=== PATIENT | male | born 1955 | race Caucasian/White ===

== ENCOUNTER 2019-02-16 06:42 | Inpatient (IN) | payer MEDICARE, OTHER ==
[~2019-02-16] VITALS: Ht 172.7 cm; Wt 137.7 kg
[~2019-02-16 06:42] MED LIST: ASPI81EC PO; ATOR80 PO; FISH1000 PO; GLIP10ER PO; METF500C PO; MULTIVITAMIN PO; OMEP20ER PO; PIOG30 PO
[2019-02-16] MEDS ORDERED: ROSU10TA PO (11:56)
[2019-02-16] MEDS ORDERED: Lisinopril2.5 MG PO (11:59)
[2019-02-16] MEDS ORDERED: METO25ER PO (12:00)
[2019-02-16] MEDS ORDERED: Nitro-Dur1 EACH TD (12:01)
--- NOTE | 2019-02-16 12:04 | NUR ---
History, Chart, Medications and Allergies reviewed before start of procedure. Patient confirms NPO status and agrees with scheduled surgery.
--- NOTE | 2019-02-16 13:00 | NUR ---
PT TAKEN TO ROOM 220 TO AWAIT FOR SURGERY. ORIENTED TO CALL LIGHT, PT AMBULATED WITH FWW STEADY, USED BATHROOM. CALL LIGHT IN REACH AND TESTER OPERATOR HELPER AND PLATE CLEANER AWARE PT IS WAITING IN ROOM.
--- NOTE | 2019-02-16 18:20 | NUR ---
PATIENT TO ROOM 220 FROM PACU. AWAKE. STATES PAIN 5/1O. DENIES NAUSEA. LLE IN SPLINT AND ZACH WRAP, ELEVATED. TOES PINK AND WARM, WIGGLES THEM. LS CLEAR. HRR. VSS. PATIENT ASKING FOR FOOD, TALKATIVE. WILL MONITOR AND REPORT TO NOC RN.
--- NOTE | 2019-02-17 07:54 | NUR ---
SHIFT SUMMARY PT A&O X4 T/O SHIFT. POD#1 ORIF OR LLE; DRESSING CDI; LLE ELEVATED WITH ICE T/O SHIFT. TOES PWD BILAT; BRISK CAP REFILL. PAIN MANAGED PER EMAR. SCD AND MELINDA TO RLE. WEANED DOWN TO RA WHILE AWAKE, PT DECLINED CPAP WHILE SLEEPING AND OPTED FOR O2 WHILE SLEEPING. CONT. OX IN PLACE. CALL LIGHT IN REACH; PT DEMONSTRATES USE. REPORT GIVEN TO DAY SHIFT RN.
--- NOTE | 2019-02-17 09:26 | NUR ---
DR BONILLA HERE TO SEE PT.
--- NOTE | 2019-02-17 17:16 | NUR ---
PT REPORTS DOES NOT WANT TO HAVE NITRO PATCH PLACED TODAY.
--- NOTE | 2019-02-17 17:39 | NUR ---
SHIFT SUMMARY PT EATING AND DRINKING. PT WORKED WITH THERAPY TODAY. PT BEEN ASSISTED WITH ADL'S PRN. PT BEEN MED FOR PAIN PER PT REQ. PT USING CALL LIGHT APPR. FRIENDS IN TO SEE PT THIS EVENING. PT DID TAKE NAP THIS AFTERNOON IN BED. PT VOIDING, DISCUSSED BOWEL CARE.
--- NOTE | 2019-02-18 05:56 | NUR ---
POD 2 S/P ORIF OF LLE. PT VSS T/O NIGHT. DRESSING CDI. CAP REFILL WNL, PT DENIED N/T. LLE ELEVATED IN BED T/O NIGHT, W/ICE PRN. PAIN MGD PER EMAR W/REP RELIEF. PT ANXIOUS R/T MOBILITY AND MAINTAINING WBS; EDUCATION AND ENCOURAGEMENT PROVIDED. PT USING CALL LIGHT FOR ASSISTANCE, WILL CONT TO MONITOR UNTIL REP GIVEN TO ONCOMING RN.
--- NOTE | 2019-02-18 12:44 | NUR ---
PT REPORTS NAUSEA MEDICATION HELPED.
--- NOTE | 2019-02-18 18:09 | NUR ---
SHIFT SUMMARY PT EATING AND DRINKING WELL. VOIDING. PT HAD BM TODAY. PT WORKED WITH THERAPY. BEEN UP TO W/C THIS AFTERNOON. PT BEEN ASSISTED WITH ADL'S PRN. PT BEEN MED FOR PAIN PRN. PT USING [employer] APPR.
--- NOTE | 2019-02-19 05:42 | NUR ---
SHIFT SUMMARY PT A&O X4 T/O SHIFT. POD#3 ORIF LLE; DRESSING CDI; PPPX4; BRISK CAP REFILL; PT DENIES N/T IN ALL EXT. LLE ELEVATED. NO ACUTE CHANGES; VSS. CONT. OX AND O2 VIA NC WHILE ASLEEP; PT DECLINED CPAP. PT DENIES SOB, CP AND NAUSEA. PAIN MANAGED PER EMAR; PT DECLINED ICE TO LLE. CALL LIGHT IN REACH; PT DEMONSTRATES USE. WCTM UNTIL REPORT TO DAY SHIFT RN.
--- NOTE | 2019-02-19 08:55 | NUR ---
02/19/19 0855 Lesley Velasquez VERIFICATIONS: EDIT CHART.
--- NOTE | 2019-02-19 16:24 | NUR ---
DISCHARGE CANCELLED DR. BONILLA UNABLE TO DO DISCHARGE MED REC. PT WILL REMAIN OVERNIGHT AND DISCHARGE TOMORROW. WILL CONTINUE TO MONITOR.
--- NOTE | 2019-02-19 19:30 | NUR ---
SHIFT SUMMARY PAIN HAS BEEN MANAGED WITH TYLENOL AND ADVIL THIS SHIFT. PT IS A 1 ASSIST FOR TRANFERS. PLAN FOR DISCHARGE TO SNF TOMORROW. VSS. REPORT GIVEN TO NEREYDA MARTINEZ.
--- NOTE | 2019-02-20 06:18 | NUR ---
SHIFT SUMMARY NO ACUTE CHANGES, PAIN BEING MANAGED WITH ADVIL THIS SHIFT. LLE ELEVATED ON PILLOWS. PULSES PRESENT, CAP REFILL <3 TO LLE. PLAN IS FOR PT TO DC TO SNF FOR REHAB TODAY. PT RESTING IN BED AT THIS TIME, WILL CONT TO MONITOR AND PROVIDE CARE UNTIL PRESUMED BY ONCOMING RN.
--- NOTE | 2019-02-20 11:29 | NUR ---
DISCHARGE REPORT CALLED TO SHANTA AT [facility] AT APPROXIMATELY 1105. TRANSPORT ARRIVED FOR PT [facility]. PT ALERT AND ORIENTED AT TIME OF DEPARTURE. PAIN MANAGED. ORDERS AND PRESCRIPTIONS SENT WITH TO [facility].
== END 2019-02-20 11:18 | DRG 493 ==
LOC: ORD 06:42 → ORSCMMR 11:08 → ORD 12:00 → SURS 15:47
PROVIDERS: ADMIT Orthopaedic Surgery
PROC: 0QSK04Z Reposition Left Fibula with Internal Fixation Device, Open Approach (ICD-10-PCS; principal; 2019-02-16 14:45)
DX: S82.832A Other fracture of upper and lower end of left fibula, initial encounter for closed fracture (principal); Z68.43 Body mass index [BMI] 50.0-59.9, adult; W19.XXXA Unspecified fall, initial encounter; E66.01 Morbid (severe) obesity due to excess calories; K21.9 Gastro-esophageal reflux disease without esophagitis; G47.33 Obstructive sleep apnea (adult) (pediatric); S93.422A Sprain of deltoid ligament of left ankle, initial encounter; E11.9 Type 2 diabetes mellitus without complications; E78.5 Hyperlipidemia, unspecified; I10 Essential (primary) hypertension
CPT/HCPCS: 82947; 87081; 94660; 94762; 97110; 97162; 97166; 97530; 97535; A9270; C1713; J0690; J1100; J1885; J2250; J2270; J2405; J2704; J3010; J7120

== ENCOUNTER 2019-05-28 09:23 | Day surgery (SDC) | payer MEDICARE, OTHER ==
[~2019-05-28] VITALS: Ht 167.6 cm; Wt 143.0 kg
[~2019-05-28 09:23] MED LIST changes: +Lisinopril2.5 MG PO; +METO25ER PO; +Nitro-Dur1 EACH TD; +ROSU10TA PO
[2019-05-28] MEDS ORDERED: CYCL10 PO (09:46)
[2019-05-28] MEDS ORDERED: PSEU120ER PO (09:47)
[2019-05-28] MEDS ORDERED: MELA3 PO (09:49)
--- NOTE | 2019-05-28 12:47 | NUR ---
AMBULATED TO BATHROOM TOLERATED WELL.
--- NOTE | 2019-05-28 13:10 | NUR ---
2 CC AIRE REMOVED FROM TR BAND. NO BLEDING AT SITE. ADDITIONAL AIR REMOVED OVER 10 MINUTES. TO ROOM AIR AT 1320.
--- NOTE | 2019-05-28 13:52 | NUR ---
DRESSED FOR DISCHARGE. DISCHARGE INSTRUCTIONS GIVEN WITH VERBAL AND WRITTEN UNDERSTANDING
[2019-05-28] MEDS ORDERED: Isosorbide Mono30 MG PO (13:59)
--- NOTE | 2019-05-28 14:00 | NUR ---
TR BAND REMOVED. SITE CLEANED, CLOTH DOTH, IMMOBILIZER AND SLING APPLIED.
--- NOTE | 2019-05-28 14:23 | NUR ---
DISCHARGED HOME VIA WHEELCHAIR. FRIEND DRIVING. SLING APPLIED.
== END 2019-05-28 14:15 | disposition home or self-care (01) ==
LOC: MHTC 09:23
PROC: 4A023N7 Measurement of Cardiac Sampling and Pressure, Left Heart, Percutaneous Approach (ICD-10-PCS; principal; 2019-05-28)
PROC: B215YZZ Fluoroscopy of Left Heart using Other Contrast (ICD-10-PCS; principal; 2019-05-28)
PROC: B211YZZ Fluoroscopy of Multiple Coronary Arteries using Other Contrast (ICD-10-PCS; principal; 2019-05-28)
DX: I25.119 Atherosclerotic heart disease of native coronary artery with unspecified angina pectoris (principal); E11.9 Type 2 diabetes mellitus without complications; E66.01 Morbid (severe) obesity due to excess calories; E78.5 Hyperlipidemia, unspecified; I10 Essential (primary) hypertension; G47.33 Obstructive sleep apnea (adult) (pediatric); K21.9 Gastro-esophageal reflux disease without esophagitis; I83.90 Asymptomatic varicose veins of unspecified lower extremity; I34.0 Nonrheumatic mitral (valve) insufficiency; I77.819 Aortic ectasia, unspecified site; M19.90 Unspecified osteoarthritis, unspecified site; Z88.1 Allergy status to other antibiotic agents; Z88.8 Allergy status to other drugs, medicaments and biological substances; Z79.82 Long term (current) use of aspirin; Z79.84 Long term (current) use of oral hypoglycemic drugs; Z79.02 Long term (current) use of antithrombotics/antiplatelets; Z79.899 Other long term (current) drug therapy; Z68.43 Body mass index [BMI] 50.0-59.9, adult
CPT/HCPCS: 82947; 85347; 93454; 93571; 99152; 99153; C1769; C1887; C1894; J1644; J2250; J3010; J7030; Q9967

== ENCOUNTER 2020-09-15 15:57 | Emergency (ER) | payer OTHER ==
[~2020-09-15] VITALS: Ht 172.7 cm; Wt 136.1 kg
[~2020-09-15 15:57] MED LIST changes: +CYCL10 PO; +Isosorbide Mono30 MG PO; +MELA3 PO; +PSEU120ER PO
[2020-09-15] MEDS ORDERED: NYSTATIN15 GM TOP (18:49)
== END 2020-09-15 19:05 | disposition home or self-care (01) ==
LOC: ER 15:57
DX: S09.90XA Unspecified injury of head, initial encounter (principal); E11.9 Type 2 diabetes mellitus without complications; E78.5 Hyperlipidemia, unspecified; I10 Essential (primary) hypertension; Z88.1 Allergy status to other antibiotic agents; Z88.8 Allergy status to other drugs, medicaments and biological substances; Z79.82 Long term (current) use of aspirin; Z79.84 Long term (current) use of oral hypoglycemic drugs; Z79.899 Other long term (current) drug therapy; W18.30XA Fall on same level, unspecified, initial encounter
CPT/HCPCS: 70450; 99284-25